=== PATIENT | male | born 2000 ===

== ENCOUNTER 2020-03-06 20:36 | Emergency (ER) | payer OTHER, SELFPAY ==
[2020-03-07] MEDS ORDERED: Ibuprofen 100 MG/5 ML UDCUP ONE (23:10)
== END 2020-03-06 21:47 | disposition home or self-care (01) ==
LOC: ERS 20:36
DX: Z20.828 Contact with and (suspected) exposure to other viral communicable diseases (principal)
CPT/HCPCS: 99281